=== PATIENT | female | born 1980 | race Caucasian/White ===

== ENCOUNTER 2024-12-11 02:18 | Emergency (ER) | payer BC, SELFPAY ==
[2024-12-11 02:21] VITALS: BP 140/87
[2024-12-11 02:39] VITALS: BMI 23.0
[2024-12-11] MEDS: TYLENOL ORAL SOLUTION 650 MG PO (02:45)
--- NOTE | 2024-12-11 03:07 | ED.GENMED ---
Addendum entered and electronically signed by Sudhir Bang PA-C 12/14/24 07:35:
Throat culture shows strep. On augmentin. No indication for any change.
Original Note:
History of Present Illness
General
Chief Complaint: Fever
Time Seen by Provider: 12/11/24 03:06
History of Present Illness
History of Present Illness:
TIME OF INITIAL EVALUATION
- 3:10 AM
REVIEW OF OLD RECORDS
- The patient has had cholecystectomy and in the past. I reviewed records, the patient had colonoscopy in 2019.
Note:
CHIEF COMPLAINT(S)
Fever for three days with a sore throat and difficulty swallowing.
HISTORY OF PRESENT ILLNESS
The patient is a 44-year-old female presenting with a fever of up to 105 degrees Fahrenheit for the past three days. The patient reports that the fever started approximately three days ago and has been managed partially with Tylenol, which provides
some relief. She describes the sore throat as feeling 'like razors' when swallowing. The patient has experienced cramping and severe thirst but is unable to ingest fluids effectively. Additionally, she reports experiencing a 'Christiano horse' during
sleep that woke her abruptly, indicating possible dehydration. The patient also mentions a sensation of not fully voiding during urination, though there is no pain associated with urination. Examination revealed a red throat with absence of pus,
possibly indicating inflammation but no apparent severe infection. The patient denies any previous episodes like this or treatment with steroids.
REVIEW OF SYSTEMS
- General: Fever, dehydration
- Ear, Nose, and Throat: Sore throat, feeling of pressure in ears
- Musculoskeletal: Cramping
- Genitourinary: Decreased urine output
- Cardiovascular: Tachycardia noted by the patient
- Respiratory: No difficulty breathing noted
PHYSICAL EXAM
- General: The patient appears somewhat uncomfortable
- HEENT: Mild erythema noted to the posterior oropharynx but no significant edema, there is no exudate, there may be some scattered very small vesicles
- Cardiovascular: No murmurs, normal heart rate, regular rhythm, No chest wall tenderness
- Pulmonary: No respiratory distress, breath sounds are clear and equal
- Abdomen: Soft with no peritoneal signs, no tenderness
- Neurologic: Excellent strength all extremities, no coordination deficits
- Psychiatric: Appropriate mental status, normal insight and judgement
- Extremities: Nontender, no edema, moves all extremities equally
- Skin: No rash, no lesions
- Abdomen: No pain upon palpation
PLAN
- Initiate intravenous fluids to address dehydration.
- Obtain basic blood work to further evaluate the patients condition.
- Consideration for steroid medication pending strep throat test results to reduce throat swelling if indicated.
- Monitor vital signs, particularly heart rate and temperature, and re-evaluate after fluid administration.
DIFFERENTIAL DIAGNOSIS
The Differential Diagnosis includes, in no particular order and is not limited to:
1. Viral pharyngitis
2. Streptococcal pharyngitis (awaiting test results)
3. Infectious mononucleosis
4. Influenza
5. COVID-19
6. Dehydration
7. Hypothyroidism (due to bradycardia symptom history, not currently observed)
8. Tonsillitis
9. Lymphadenitis
10. Urinary tract infection (less likely given the absence of dysuria)
RADIOLOGY
- No clear indication for imaging
EKG
- Not indicated
LABS
- Flu, COVID, strep test are all negative, white count 16.2, lactic normal
UPDATE
- On reassessment after IV fluids, Toradol, and a dose of Decadron, she feels significantly improved.
SUMMARY OF ENCOUNTER
The patient, a 44-year-old female, presented to the emergency department with a high fever up to 105 degrees Fahrenheit for the last three days, accompanied by a sore throat and difficulty swallowing. She reported severe dehydration symptoms,
including muscle cramping and extreme thirst. Blood work revealed an elevated white blood cell count, indicating a possible bacterial infection despite the throat exam showing only small vesicles commonly associated with viral infections. Lactic
acid levels were normal, ruling out severe infection. Given the elevated white blood cell count and high fever, an antibiotic was started. The patient was given intravenous fluids for hydration, along with Toradol, Tylenol, and a one-time dose of
dexamethasone to reduce throat swelling. The patient was advised to increase her dose of ibuprofen for better fever management and was deemed stable for discharge with a prescription for an antibiotic.
DISPOSITION
Discharge.
ASSESSMENT
The working assessment is a probable bacterial throat infection given the elevated white blood cell count and high fever, though the presence of small vesicles could indicate a viral origin.
EMERGENCY TREATMENTS ADMINISTERED
The patient received intravenous fluids, a dose of ketorolac (Toradol), a dose of acetaminophen (Tylenol), and a one-time dose of dexamethasone.
PLAN
The patient is to be discharged with a prescription for an antibiotic to address the suspected bacterial infection. She is to continue taking acetaminophen and increase her ibuprofen dosage as needed for fever and pain management. Follow-up is
indicated if symptoms persist or worsen.
INDEPENDENT REVIEW OF LABS AND INTERPRETATION OF TESTS
My independent review of the CBC indicates leukocytosis. My independent review of the lactic acid test shows normal levels, ruling out more severe infection.
PATIENT EDUCATION AND COUNSELING
The patient was instructed on the importance of staying hydrated, managing her fever with appropriate medications, and the increased effectiveness of taking four ibuprofen tablets at a prescription strength when needed.
FOLLOW-UP INSTRUCTIONS
The patient is advised to follow up with primary care if symptoms do not improve or if they worsen.
MEDICATION RECONCILIATION
Prescribed an antibiotic for suspected bacterial infection, instructed to continue acetaminophen, and advised to increase ibuprofen dosage for fever management.
MEDICAL DECISION MAKING
-Number and Complexity of Problems Addressed: Chronic conditions affecting care include fever and sore throat. Differential diagnosis includes viral pharyngitis, streptococcal pharyngitis, infectious mononucleosis, influenza, COVID-19, dehydration,
and tonsillitis.
-Data:
Category 1: Lab tests reviewed include CBC with elevated white blood cell count and a normal lactic acid test.
Category 3: Discussion with the patient regarding the initiation of antibiotic therapy due to elevated white blood cell count and high fever.
-Risk: Consideration of Admission/Observation: Escalation of care including admission/observation was considered given the complexity and risk of the patients presenting complaint and test findings; however, I feel the patient is safe for outpatient
management with close follow-up. Reasoning: No acute life-threatening processes were revealed, vital signs were stable, and the patient agreed to the discharge plan and was reliable for follow-up.
DIAGNOSIS
Probable bacterial throat infection (ICD-10: J02.9).
The patient has no meningeal signs on reassessment and overall feels improved
Past History
Past History
ED Past Medical History: None
Social History
Tobacco: Non-smoker
Personal:
Living: with family
Phy Exam
Physical Exam
Physical Exam:
See HPI
Sepsis
Sepsis Screening
Sepsis Assessment: Sepsis Ruled Out
Sepsis Screen
Sepsis Screen: Sepsis Ruled Out
Date: 12/11/24
Time: 04:27
Course
Orders/Labs/Results
Orders:
Orders
12/11/24 02:33
COVID-19 Antigen Urgent
Source: Nasal Swab
Influenza A+B Rapid Molecular Urgent
JUDI Source: Nasal Swab
Specimen Description:
Date Specimen was Collected: 12/11/24
Time Specimen was Collected: 02:30
Rapid Strep Group A Urgent
JUDI Source: Throat/Pharynx
Specimen Description:
Date Specimen was Collected: 12/11/24
Time Specimen was Collected: 02:30
12/11/24 02:42
Acetaminophen [Tylenol Oral Solution] 650 mg .ROUTE .STK-MED ONE
12/11/24 02:45
Acetaminophen [Tylenol Oral Solution] 650 mg PO NOW STA
12/11/24 03:16
0.9% Sodium Chloride 1000 ml [Nss] 1,000 ml IV BOLUS
Dexamethasone Sod Phosphate [Decadron] 10 mg IV NOW STA
Ketorolac [Toradol] 15 mg IV NOW STA
12/11/24 03:36
Blood Culture Q30M
JUDI Source: Blood/Venous
Specimen Description:
12/11/24 03:37
Complete Blood Count/With Diff Urgent
Comprehensive Metabolic Panel Urgent
Lactic Acid Q4H
Comment: CANCEL 2nd LACTIC ACID IF 1st LACTIC ACID IS LESS THAN 2
Monotest Urgent
12/11/24 03:39
Blood Culture Q30M
JUDI Source: Blood/Venous
Specimen Description:
12/11/24 04:22
Amoxicillin 875 mg/Clav 125 mg [Augmentin 875 mg/125 mg] 1 tablet PO NOW STA
Abnormal Lab Results
12/11/24
03:37
WBC 16.2 H 10^3/uL
(4.8-10.8)
Abs Immat Gran (auto) 0.1 H 10^3/uL
(0-0.05)
Absolute Neuts (auto) 13.7 H 10^3/uL
(1.4-6.5)
Absolute Monos (auto) 0.9 H 10^3/uL
(0.1-0.6)
Immature Gran % 0.6 H %
(0-0.5)
Neutrophils % 84.8 H %
(42.2-75.2)
Lymphocytes % 9.0 L %
(20.5-51.1)
Chloride 108 H mmol/L
(98-107)
Glucose 118 H mg/dl
(70-99)
12/11/24 03:37
12/11/24 03:37
Vital Signs
Initial and Last Documented VS:
Initial Vital Signs
Temp Pulse Resp BP Pulse Ox
39.0 C H 104 18 140/87 96
12/11/24 02:21 12/11/24 02:21 12/11/24 02:21 12/11/24 02:21 12/11/24 02:21
Last Documented Vital Signs
Temp Pulse Resp BP Pulse Ox
39.0 C H 74 18 102/58 96
12/11/24 02:21 12/11/24 03:47 12/11/24 03:47 12/11/24 04:00 12/11/24 04:00
*Pulse Oximetry
SaO2: 96
Oxygen Mode of Delivery: Room air
Patient hypoxic: no
*Critical Care Note
Total Time (30-74mins, 75-104mins- exclusive of procedures): Not Applicable
ED Attending Note
-
Portions of this chart may have been created with voice recognition software.� Occasional wrong word or��sound alike� substitutions may have occurred due to the inherent limitations of voice recognition software.
Discharge Plan
Departure
Patient Disposition: Home (Routine Discharge)
Date of Disposition: 12/11/24
Time of Disposition: 04:23
Patient with high blood pressure during this ER visit?: Yes
Discharge Problem:
Fever
Instructions: Fever, Adult (DC), BLOOD PRESSURE
Prescriptions:
New
amoxicillin-pot clavulanate 875-125 mg tablet
1 tab PO BID Qty: 14 0RF
No Action
multivitamin [Daily Multiple] 1 EACH tablet
1 ea PO DAILY
ondansetron HCl 4 MG tablet
4 mg PO TIDPRN PRN (Reason: nausea and vomiting) Qty: 15 0RF
Referrals:
UNKNOWN - PT DOES,NOT KNOW [Family Provider]
Activity Restrictions/Additional Instructions:
Your white blood cell count is high at 16.2. Other basic blood work is unremarkable. Lactic acid level is normal. Monotest is negative, COVID test is negative, and strep test is negative. However given the high white blood cell count with high
fevers, I am placing you on oral antibiotics. Return here if worse or other concerns. I recommend 3-4 [id number] ibuprofen (Motrin) every 8 hours with food for a few days. Return here if worse.
Interventions
Interventions:
*Risk Screen - Suicide Last Done: 12/11/24 02:21
*Neglect/Abuse Screening Last Done: 12/11/24 03:52
*ED- Fall Risk Assessment Last Done: 12/11/24 03:52
*ED COVID-19 Vaccine History Last Done: 12/11/24 03:52
ED- Neurological Assessment Last Done: 12/11/24 03:52
ED-Skin Assessment Last Done: 12/11/24 03:52
Discharge Date and Time
Print Language: COLOMBIAN
[2024-12-11 03:16] LABS: COVID-19 Antigen Negative (Negative)
[2024-12-11] MEDS: DECADRON 10 MG IV (03:35)
[2024-12-11] MEDS: TORADOL 15 MG IV (03:35)
[2024-12-11] MEDS: NSS 1000 IV (03:35)
[2024-12-11 03:47] VITALS: BP 107/61
[2024-12-11 03:57] LABS: Hematocrit 40.5 % (37.0-47.0); Hemoglobin 13.8 g/dL (12.0-16.0); Mean Corp Hgb Conc. 34.1 g/dL (33.0-37.0); Mean Corpuscular Volume 88.8 fL (81.0-99.0); Nucleated Red Blood Cells % 0 %; Platelet Count 229 10^3/uL (130-400); Red Cell Dist. Width 12.5 % (11.5-14.5)
[2024-12-11 04:00] VITALS: BP 102/58
[2024-12-11 04:12] LABS: ALT (SGPT) 15 U/L (0-35); AST (SGOT) 20 U/L (14-36); Albumin 4.2 g/dl (3.5-5.0); Alkaline Phosphatase 51 U/L (38-126); Blood Urea Nitrogen 7 mg/dl (7-17); Calcium 8.8 mg/dl (8.4-10.2); Carbon Dioxide 25 mmol/L (22-30); Chloride 108 mmol/L (98-107); Estimated Creatinine Clearance 101 ml/min; Glucose 118 mg/dl (70-99); Potassium 3.9 mmol/L (3.5-5.1); Sodium 139 mmol/L (135-145); Total Protein 6.9 g/dl (6.3-8.2); eGFR > 60.00
[2024-12-11] MEDS: AUGMENTIN 875 MG/125 MG 1 TABLET PO (04:31)
== END 2024-12-11 04:47 | disposition home or self-care (01) ==
LOC: EMR 02:18
PROVIDERS: EMERGENCY PHYSICIAN Emergency Medicine
DX: R50.9 Fever, unspecified (principal); J02.9 Acute pharyngitis, unspecified; E86.0 Dehydration; R13.10 Dysphagia, unspecified; D72.829 Elevated white blood cell count, unspecified; Z11.52 Encounter for screening for COVID-19
CPT/HCPCS: 96374; 96375; 96361; 99284; 80053; 83605; 85025; 86308; 87040; 87070; 87147; 87502; 87811; 87880

== ENCOUNTER → 2024-12-27 09:54 | Outpatient (REF) | payer BC, SELFPAY | LOC: RCS 09:54 | PROVIDERS: ATTENDING PHYSICIAN Family Medicine | DX: M41.129 Adolescent idiopathic scoliosis, site unspecified (principal); R01.1 Cardiac murmur, unspecified | CPT/HCPCS: 93306 ==